=== PATIENT | female | born 1985 | race Caucasian/White ===

== ENCOUNTER 2016-10-07 20:08 | Emergency (ER) | payer OTHER ==
[~2016-10-07] VITALS: Ht 167.6 cm; Wt 65.0 kg
[~2016-10-07 20:08] MED LIST: NORE1CHW4 CHEW
[2016-10-07 20:11] VITALS: BP 123/87; PULSE 80; RESP 16; TEMP 97.8; O2SAT 99
[2016-10-07 20:56] VITALS: BP 133/87; PULSE 75; RESP 18; TEMP 98.7; O2SAT 98
[2016-10-07] MEDS ORDERED: PERC7.5T13 PO (21:00)
[2016-10-07 21:18] VITALS: O2SAT 99
--- NOTE | 2016-10-07 21:23 | PD ---
HPI Chief Complaint: Skin Problem Time Seen by Provider: 20:52 Travel History International Travel<30 days: No Contact w/Intl Traveler<30days: No Traveled to known affect area: No History of Present Illness HPI The patient is a 30 year old female who presents to the [facility] emergency department with a history of reportedly noticing swelling and increased pain in the left axilla that began earlier today. The patient reports that on September 28 she underwent excision of a left axillary lipoma. She reports that this was done by a surgeon in [place]. She reports that the surgeon is . The patient reports that she had been healing slowly although she did notice an odor in the area over the last 2 days. She reports that today she noticed that there was increased swelling of her left axilla with radiation of pain down into the left arm and redness at the border of the wound with increased moisture noted at the site. She was concerned about infection. She reports that she has been taking her pain medication as needed for the discomfort. She denies being on any antibiotic. The patient denies any recent fevers, cough, congestion, neck pain, chest pain, shortness of breath, abdominal pain, vomiting, diarrhea, urinary symptoms, or neurologic symptoms. LMP: PFSH Past Medical History Narrative Medical The patient's past medical history is significant for migraine headaches. Diminished Hearing: No Migraines: Yes Tetanus Vaccination: Unknown Influenza Vaccination: No ?: Not LMP: 10/03/16 Past Surgical History Narrative Surgical The patient's past surgical history is significant for left axillary lipoma resection September 28, 2016. Other Surgery: Yes (lipoma removal left armpit 09/28) Social History Alcohol Use: Yes (occasional ) Tobacco Use: Yes (1/2 pack a day ) Substance Use: No Allergies-Medications (Allergen,Severity, Reaction): Coded Allergies: Flagyl (Verified Allergy, Intermediate, hives, 10/07/16) Diclofenac (Verified Allergy, Unknown, 10/07/16) Methocarbamol (Verified Allergy, Unknown, 10/07/16) Tramadol (Verified Allergy, Unknown, 10/07/16) Reported Meds & Prescriptions Reported Meds & Active Scripts Active Reported Percocet (Oxycodone-Acetaminophen) 7.5-325 mg Tab 1 Tab PO Q6H PRN Review of Systems Except as stated in HPI: all other systems reviewed are Neg General / Constitutional: No: Fever Eyes: No: Visual changes HENT: No: Headaches Cardiovascular: No: Chest Pain or Discomfort Respiratory: No: Shortness of Breath Gastrointestinal: No: Abdominal Pain Genitourinary: No: Dysuria Musculoskeletal: No: Pain Skin: Positive Lumps, No Rash Neurologic: No: Weakness Psychiatric: No: Depression Endocrine: No: Polydipsia Hematologic/Lymphatic: No: Easy Bruising Physical Exam Narrative General: The patient is a well-developed well-nourished female in no acute distress. Head and Neck exam: Head is normocephalic atraumatic. Eyes: Pupils are equal round and reactive to light. Nose: Midline septum with pink mucous membranes Mouth: Dentition unremarkable. Moist mucus membranes. Posterior oropharynx is not erythematous. No tonsillar hypertrophy. Uvula midline. Airway patent. Neck: No palpable lymphadenopathy. No nuchal rigidity. No thyromegaly. Cardiovascular: Regular rate and rhythm without murmurs, gallops, or rubs. Lungs: Clear to auscultation bilaterally. No wheezes, rhonchi, or rales. Abdomen: Soft, without tenderness to palpation in all 4 quadrants of the abdomen. No guarding, rebound, or rigidity. Normal bowel sounds are audible. Extremities: No clubbing, cyanosis, or edema. 2+ pulses in all 4 extremities. Back: No spinous process tenderness to palpation. No costovertebral angle tenderness to palpation. Neurologic Exam: Grossly nonfocal. Skin Exam: The area of interest is the left axilla, the patient has an approximately 5 cm postoperative wound with surrounding rim of erythema and a clear drainage. The patient is also noted to have some bruising and left axilla. The patient is noted to have an area of swelling, fluctuance noted underneath this wound. There is no significant erythema over the area of fluctuance. There is no significant tenderness on palpation. The patient has no other swelling or tenderness on palpation of the left arm. Data Data Last Documented VS Vital Signs Date Time Temp Pulse Resp B/P Pulse Ox O2 Delivery O2 Flow Rate FiO2 10/07/16 21:18 99 Room Air 10/07/16 20:56 98.7 75 18 133/87 Orders Complete Blood Count With Diff (10/07/16 21:05) Comprehensive Metabolic Panel (10/07/16 21:05) C-Reactive Protein (Crp) (10/07/16 21:05) Urinalysis - C+S If Indicated (10/07/16 21:05) Wound Culture And Gram Stain (10/07/16 21:05) Iv Access Insert/Monitor (10/07/16 21:05) Ecg Monitoring (10/07/16 21:05) Oximetry (10/07/16 21:05) Ed Urine Pregnancytest Poc (10/07/16 21:05) Us Soft Tissue (10/07/16 ) Sodium Chlorid 0.9% 500 Ml Inj (Ns 500 M (10/07/16 22:00) Cefazolin 2 Gm Premix (Ancef 2 Gm Premix (10/07/16 22:00) Ketorolac Inj (Toradol Inj) (10/07/16 22:00) Labs Laboratory Tests Test 10/07/16 10/07/16 21:10 21:40 White Blood Count 8.3 TH/MM3 Red Blood Count 4.36 MIL/MM3 Hemoglobin 13.6 GM/DL Hematocrit 39.4 % Mean Corpuscular Volume 90.4 FL Mean Corpuscular Hemoglobin 31.2 PG Mean Corpuscular Hemoglobin 34.5 % Concent Red Cell Distribution Width 12.7 % Platelet Count 216 TH/MM3 Mean Platelet Volume 8.4 FL Neutrophils (%) (Auto) 58.4 % Lymphocytes (%) (Auto) 28.1 % Monocytes (%) (Auto) 8.1 % Eosinophils (%) (Auto) 5.0 % Basophils (%) (Auto) 0.4 % Neutrophils # (Auto) 4.9 TH/MM3 Lymphocytes # (Auto) 2.3 TH/MM3 Monocytes # (Auto) 0.7 TH/MM3 Eosinophils # (Auto) 0.4 TH/MM3 Basophils # (Auto) 0.0 TH/MM3 CBC Comment DIFF FINAL Differential Comment Sodium Level 140 MEQ/L Potassium Level 4.0 MEQ/L Chloride Level 104 MEQ/L Carbon Dioxide Level 28.2 MEQ/L Anion Gap 8 MEQ/L Blood Urea Nitrogen 18 MG/DL Creatinine 1.29 MG/DL Estimat Glomerular Filtration 49 ML/MIN Rate Random Glucose 79 MG/DL Calcium Level 8.2 MG/DL Total Bilirubin 0.2 MG/DL Aspartate Amino Transf 10 U/L (AST/SGOT) Alanine Aminotransferase 18 U/L (ALT/SGPT) Alkaline Phosphatase 64 U/L C-Reactive Protein 1.30 MG/DL Total Protein 6.5 GM/DL Albumin 3.5 GM/DL Urine Color LIGHT-YELLOW Urine Turbidity CLEAR Urine pH 7.0 Urine Specific Crawford 1.010 Urine Protein NEG mg/dL Urine Glucose (UA) NEG mg/dL Urine Ketones NEG mg/dL Urine Occult Blood NEG Urine Nitrite NEG Urine Bilirubin NEG Urine Urobilinogen LESS THAN 2.0 MG/DL Urine Leukocyte Esterase NEG Urine RBC 1 /hpf Urine Squamous Epithelial 1 /hpf Cells Microscopic Urinalysis Comment CULT NOT INDICATED MDM Medical Decision Making Medical Screen Exam Complete: Yes Emergency Medical Condition: Yes Medical Record Reviewed: Yes Interpretation(s) Last Impressions Soft Tissue Ultrasound 10/07/16 0000 Signed Impressions: Service Date/Time: Friday, October 07, 2016 21:39 - CONCLUSION: 1. Complex septated fluid collection in the left axilla. Differential diagnosis includes complex seroma or abscess. Hemant Amador MD Differential Diagnosis Seroma, versus abscess Narrative Course During the course of the patients emergency department visit, the patients history, examination, and differential diagnosis were reviewed with the patient. The patient had IV access obtained and blood work sent for analysis. The patient had an ultrasound ordered of the soft tissues of the left axilla to better determine whether the patient's area of swelling is related to an abscess , versus seroma. The patient was provided Ancef 2 g IV, Toradol 15 mg IV, normal saline a 500 mL bolus 1 The patients laboratory studies were reviewed and remarkable for a white count of 8.3, hemoglobin 13.6, platelets 216 with 8.1 monocytes, eosinophils 5.0, CMP is remarkable for creatinine 1.29, GFR 49, calcium 8.2, AST 10, C-reactive protein 1.3, urinalysis unremarkable. Urine test is negative. Radiology studies were reviewed and remarkable for an ultrasound that shows a complex septated fluid collection in the left axilla, differential diagnosis includes complex seroma or abscess. A call has been placed out to the patient's surgeon to discuss these results and the plan for follow-up with the patient. Physician Communication Physician Communication I spoke to Dr. Alexander, at approximately 11:15 PM regarding this patient's case. He reports that the fluid collection is likely a seroma as this is one of the common complications of this procedure. He recommended that the patient follow- up with him in his office between 10 AM and 10:30 AM tomorrow morning to have this area drained. I asked whether he would like me to continue the patient on antibiotics and he recommended that the patient be continued on Keflex. The patient will be given a prescription at discharge. Diagnosis Primary Impression: Postoperative pain Additional Impression: Seroma Referrals: General Surgeon 1 day Follow-up in 's office between 10 AM and 10:30 PM for further evaluation and drainage of the area of swelling in the left axilla per his recommendation we discussed with him in the ER this PM. Patient Instructions: General Instructions Med/Other Pt SpecificInfo: Prescription(s) given Scripts Cephalexin (Keflex)500 Mg [id number] Mg PO Q6H 10 Days Ref 0 Prov:Shivani Perez MD 10/07/16 Disposition: 01 DISCHARGE HOME Condition: Stable Shivani Perez MD Oct 07, 2016 21:23
[2016-10-07 21:40] LABS: AUTOMATED NEUTROPHIL # 4.9 TH/MM3 (1.8-7.7); BASOPHIL % 0.4 % (0.0-2.0); EOSINOPHIL # 0.4 TH/MM3 (0-0.4); HEMATOCRIT 39.4 % (35.0-46.0); HEMO FLAGS DIFF FINAL; LYMPH % 28.1 % (9.0-44.0); LYMPHOCYTE # 2.3 TH/MM3 (1.0-4.8); MEAN CELL VOLUME 90.4 FL (80.0-100.0); MEAN CORPUSCULAR HEMOGLOBIN 31.2 PG (27.0-34.0); MEAN CORPUSCULAR HGB CONC 34.5 % (32.0-36.0); MONO % 8.1 % (0.0-8.0); NEUT % 58.4 % (16.0-70.0); PLATELET COUNT 216 TH/MM3 (150-450); RED BLOOD COUNT 4.36 MIL/MM3 (4.00-5.30); RED CELL DISTRIBUTION WIDTH 12.7 % (11.6-17.2); WHITE BLOOD COUNT 8.3 TH/MM3 (4.0-11.0)
[2016-10-07] MEDS ORDERED: KETOROLAC TROMETHAMINE 30 MG/ML (IVP) VIAL IV PUSH ONE (22:00)
[2016-10-07] MEDS ORDERED: SODIUM CHLORID 0.9% 500 ML INJ 500 ML IV ONE (22:00)
[2016-10-07] MEDS ORDERED: ceFAZolin 2 GM PREMIX 50 ML IV ONE (22:00)
[2016-10-07 22:08] LABS: BLOOD, URINE NEG (NEG); GLUCOSE,URINE NEG (NEG); KETONE, URINE NEG (NEG); NITRITE,URINE NEG (NEG); SQUAMOUS EPITHELIAL CELL URINE 1 /hpf (0-5); URINE COLOR LIGHT-YELLOW (YELLW/STRAW)
[2016-10-07 22:11] LABS: ANION GAP 8 MEQ/L (5-15); AST (GOT) 10 U/L (15-37); BICARBONATE 28.2 MEQ/L (21.0-32.0); BLOOD UREA NITROGEN 18 MG/DL (7-18); CHLORIDE 104 MEQ/L (98-107); GLOMERULAR FILTRATION RATE 49 ML/MIN (>89); SODIUM (NA) 140 MEQ/L (136-145)
[2016-10-07 22:14] LABS: COMMENT (UR) CULT NOT INDICATED; CULTURE IF INDICATED CULT NOT INDICATED
[2016-10-07 22:14] LABS: ALKALINE PHOSPHATASE 64 U/L (45-117); ALT (GPT) 18 U/L (10-53); TOTAL BILIRUBIN ADULT 0.2 MG/DL (0.2-1.0)
--- NOTE | 2016-10-07 22:55 | RADRPT ---
EXAM DATE/TIME: 10/07/2016 21:39 [place] COMPARISON: No previous studies available for comparison. INDICATIONS : Fluid collection. MEDICAL HISTORY : Headache. SURGICAL HISTORY : Left axillary lipoma removal. ENCOUNTER: Initial ACUITY: 1 day PAIN SCORE: 8/10 LOCATION: Left axilla. AREA EVALUATED: left axilla. FINDINGS: There is a complex, septated fluid collection in the left axilla measuring up to 5.4 x 6 x 2.2 cm. CONCLUSION: 1. Complex septated fluid collection in the left axilla. Differential diagnosis includes complex sero ma or abscess. Hemant Amador MD on October 07, 2016 at 22:51 Board Certified Radiologist. This report was verified electronically.
[2016-10-07] MEDS ORDERED: CEPH-460 PO (23:20)
[2016-12-19] MEDS ORDERED: CLIN2CRE5 VAGINAL (13:14)
[2016-12-31] MEDS ORDERED: CLIN2CRE5 VAGINAL (16:08)
== END 2016-10-07 23:38 | disposition home or self-care (01) ==
LOC: NEPE 20:08
DX: G89.18 Other acute postprocedural pain (principal); L76.34 Postprocedural seroma of skin and subcutaneous tissue following other procedure
CPT/HCPCS: 76999; 80053; 81001; 84703; 85025; 86140; 87070; 96365; 96375; 99284; J0690; J1885; J7040; 87205